=== PATIENT | male | born 2000 | race Caucasian/White ===

== ENCOUNTER 2019-02-08 15:54 | Emergency (ER) | payer SELFPAY ==
[2019-02-08 15:55] VITALS: BP 149/91; PULSE 69; RESP 18; TEMP 36.6; O2SAT 100; BMI 31.1
[2019-02-08 16:05] VITALS: BP 154/93; PULSE 73; RESP 14; O2SAT 99
[2019-02-08 16:23] VITALS: O2SAT 98
--- NOTE | 2019-02-08 16:23 | EKG12_ITS ---
Test Reason : CP Blood Pressure : / mmHG Vent. Rate : 058 BPM Atrial Rate : 058 BPM P-R Int : 158 ms QRS Dur : 090 ms QT Int : 398 ms P-R-T Axes : 053 032 034 degrees QTc Int : 390 ms Sinus bradycardia with sinus arrhythmia Otherwise normal ECG Confirmed by JONAS GIORDANO, SHASHI ([id number]), editorial specialist VIVIANE BOSTON ([id number]) on 02/11/2019 10:56:54 AM Referred By: SHAHRAM Confirmed By:SHASHI MCDANIEL MD
--- NOTE | 2019-02-08 16:27 | NURSING ---
NO OLD EKGS
--- NOTE | 2019-02-08 16:30 | RAD_ITS ---
STUDY: X-RAY CHEST REASON FOR EXAM: Male, 18 years old. Chest pain, tachycardia TECHNIQUE: 2 AP portable views COMPARISON: None. FINDINGS: EKG leads overlie the chest The lungs are clear and expanded. There is no demonstrated pleural abnormality. Normal size heart. Normal mediastinum and yo. Normal visualized pulmonary arteries. Normal visualized aortic arch and descending thoracic aorta. Normal visualized thoracic spine. Normal visualized ribs, clavicles, and shoulders. There is no demonstrated abnormality of the visualized soft tissue structures of the upper abdomen. RAD/Chest 1 View (Portable) IMPRESSION: Normal x-ray examination of the chest. Electronically Signed: Javier Lott MD at 16:42 EDT , Service support ,
--- NOTE | 2019-02-08 16:39 | ED.DCSUM_ITS ---
- ER Visit Summary Date of Service: 02/08/19 Chief Complaint: Palpitations History of Present Illness: The patient is a 18 M presenting with palpitations. Patient states he had an episode on Thursday lasting 15 to 20 minutes of his heart racing. He states he took his heart rate and it was 150. He took his mother's metoprolol. On Thursday he went to [facility] for evaluation. He was prescribed metoprolol for presumed SVT. He was asymptomatic at the time. He states he was unable to fill this prescription. He states he has had sharp constant chest pain in his left chest since Thursday. Denies other complaints. Physical Examination: Vitals are stable. Patient is afebrile. Alert no acute distress. HEENT exam is unremarkable. Neck is supple. Lungs are clear and equal bilaterally. Heart is regular rate and rhythm. Abdomen is soft nontender nondistended. Extremities are unremarkable. Skin is warm and dry. No focal neurologic deficit. Remainder of exam is unremarkable. Emergency Department Course and Treatment: Patient was given aspirin, Toradol. EKG is sinus rate of 58 with no acute ischemic changes. Chest x-ray shows no acute process. CBC, chemistries unremarkable. Troponin is negative. D-dimer negative. TSH is normal. On reevaluation, patient is resting comfortably. He declines delta troponin and would like to go home. He is advised to follow-up with Dr. Shaw technical publications manager for no doctor. He is advised he may need Holter monitoring. Advised to return to the ED for worsening complaints. Disposition: Discharge home Impression: Atypical chest pain, palpitations This note was generated with [employer] dictation software. It may contain incorrect words, spelling, and punctuation that were not noted in review of the chart prior to signing ED Disposition - Plan for ED Patient: Instructions: CHEST PAIN, Uncertain Cause, Palpitations Referrals: Eduar Shaw III, MD [STAFF PHYSICIAN] -
[2019-02-08 17:07] LABS: Absolute Lymphocyte Count 1.25 X10^3/uL (0.83-4.51); Absolute Neutrophil Count 5.6 X10^3/uL (2.0-7.7); Basophil# 0.03 X10^3/uL; Basophil% 0.4 % (0-1); Eosinophil# 0.01 X10^3/uL; Eosinophils% 0.1 % (0-5); Hematocrit 47.3 % (40-54); Hemoglobin 16.4 g/dL (13.0-16.5); Lymphocyte # 1.25 X10^3/ul (4.0); Lymphocyte % 16.4 % (19-41); Mean Corp Hgb Conc 34.7 g/dL (32-36); Mean Corpuscular Hgb 28.9 pg (27.0-32.0); Mean Corpuscular Volume 83.3 fL (80-94); Mean Platelet Vol. 9.3 fl (6.2-12.0); Monocyte# 0.73 X10^3/uL; Monocyte% 9.6 % (0-10); NRBC Flagged by Analyzer 0 % (0-5); Neutrophil # 5.61 X10^3/uL (2.7-7.7); Neutrophil % 73.4 % (47-70); Platelet Count 255 K/mm3 (150-450); RBC Distribution Width CV 11.6 % (11.6-14.6); RBC Distribution Width SD 35.2 fl (35.1-43.9); Red Blood Count 5.68 M/mm3 (4.6-6.2); White Blood Count 7.6 K/mm3 (4.4-11.0)
[2019-02-08] MEDS: Aspirin 81 MG TAB.CHEW 324 MG PO (17:11)
[2019-02-08] MEDS: Ketorolac 15 MG/ML Vial IV (17:12)
[2019-02-08 17:22] LABS: Anion Gap 7 (5-15); BUN 11 mg/dL (7-18); BUN/Creat Ratio 11.3 RATIO (10-20); Calcium,Total 9.6 mg/dL (8.5-10.1); Chloride 104 mmol/L (98-107); Creatinine, Serum 0.97 mg/dL (0.70-1.30); EST Glomerular Filtration Rate 105 mL/min (>60); Est Glom Filt Rate - Afr Amer 128 mL/min (>60); Estimated Creatinine Clearance 134.44 ml/min; Glucose 98 mg/dL (74-106); Potassium 3.9 mmol/L (3.5-5.1); Sodium Level 137 mmol/L (136-145); Thyroid Stim Hormone (TSH) 1.17 uIU/mL (0.358-3.74)
[2019-02-08 17:46] LABS: D-Dimer Quantitative (DVT/PE) < 0.27 FEU/ug/m (0.27-0.49)
[2019-02-08 18:00] VITALS: BP 115/84; PULSE 68; RESP 17; O2SAT 99
--- NOTE | 2019-02-08 18:40 | ED.DEP ---
ED Disposition - Plan for ED Patient: Instructions: CHEST PAIN, Uncertain Cause, Palpitations Referrals: Eduar Shaw III, MD [STAFF PHYSICIAN] -
== END 2019-02-08 18:51 | disposition home or self-care (01) ==
LOC: ED 16:54
PROVIDERS: Emergency Provider Emergency Medicine
DX: R07.89 Other chest pain (principal); R00.2 Palpitations; Z79.899 Other long term (current) drug therapy
CPT/HCPCS: 71045; 80048; 84443; 84484; 85025; 85379; 93005; 96374; 99284; A4216

== ENCOUNTER 2019-12-03 22:47 | Emergency (ER) | payer MEDICAID, SELFPAY ==
[2019-12-03 22:47] VITALS: BP 154/92; PULSE 71; RESP 16; TEMP 36.4; O2SAT 99; BMI 32.8
--- NOTE | 2019-12-03 23:02 | ED.DCSUM_ITS ---
- ER Visit Summary Date of Service: 12/03/19 Chief Complaint: Dizziness History of Present Illness: The patient is a 19 M who presents with dizziness that has been intermittent over the past 5 months. Patient states it is getting more frequent. Patient states he feels lightheaded. Patient states he feels like he might pass out. Patient states this is worse with exertion and activity. Patient admits to a headache. Patient states his headache feels like a sinus infection. Patient states that he has been on antibiotics for possible sinus infection which has not improved his headache. Patient states that his headache feels like a pressure over the top of his head. Patient denies any fevers or chills. Patient denies any chest pain or shortness of breath. Patient states he does feel like his heart is racing at times. Physical Examination: Vital signs are stable. Patient is afebrile. Patient is in no acute distress. Pupils are equal, round, and reactive to light bilaterally. Extraocular muscles are intact. There is no nystagmus noted. Oral mucosa is pink and moist. Neck is supple. Trachea is midline. There is no JVD noted. Heart was regular rate and rhythm. Lungs are clear and equal bilaterally. Abdomen is soft. Bowel sounds are normal. There is no tenderness. There is no rebound or guarding noted. Skin is warm dry. Cranial nerves II through XII are intact. There are no focal motor or sensory deficits noted. Extremities are intact. There is no calf tenderness or edema. Test Results: CBC and comprehensive metabolic profile were within normal limits. CT scan of the brain was obtained. There is no acute intracranial abnormality. This was interpreted by the radiologist and reviewed by myself. Orthostatic vital signs were obtained and were within normal limits. Emergency Department Course and Treatment: Patient was given Reglan and Benadryl for his headache. Patient is feeling better on reevaluation. Patient was instructed to rest in a dark quiet room. Patient was instructed to follow-up with his primary care physician in 5 to 7 days. Patient understood and was agreeable with the plan. All questions were answered. Disposition: Discharge home Impression: Dizziness This note was generated with [employer] dictation software. It may contain incorrect words, spelling, and punctuation that were not noted in review of the chart prior to signing ED Disposition - Plan for ED Patient: Disposition: Home or Assisted Living Diagnosis: Dizziness Instructions: ED Dizziness [facility] Referrals: Robin Bond MD [STAFF PHYSICIAN] - 5-7 Days
[2019-12-03 23:30] VITALS: BP 138/70; PULSE 62
[2019-12-03 23:35] VITALS: BP 134/81; PULSE 54
[2019-12-03 23:40] VITALS: BP 141/89; PULSE 68
[2019-12-03] MEDS: DiphenhydrAMINE 50 MG/ML Syringe 25 MG IV (23:50)
[2019-12-03] MEDS: Metoclopramide 10 MG/2 ML Vial IV (23:51)
[2019-12-04 00:01] LABS: Absolute Lymphocyte Count 1.96 X10^3/uL (0.83-4.51); Absolute Neutrophil Count 3.8 X10^3/uL (2.0-7.7); Basophil# 0.03 X10^3/uL; Basophil% 0.5 % (0-1); Eosinophil# 0.12 X10^3/uL; Eosinophils% 1.8 % (0-5); Hematocrit 45.7 % (40-54); Hemoglobin 15.1 g/dL (13.0-16.5); Lymphocyte # 1.96 X10^3/ul (4.0); Lymphocyte % 29.9 % (19-41); Mean Corpuscular Hgb 28.9 pg (27.0-32.0); Mean Corpuscular Volume 87.5 fL (80-94); Mean Platelet Vol. 9.1 fl (6.2-12.0); Monocyte# 0.61 X10^3/uL; Monocyte% 9.3 % (0-10); NRBC Flagged by Analyzer 0 % (0-5); Neutrophil # 3.82 X10^3/uL (2.7-7.7); Neutrophil % 58.3 % (47-70); Platelet Count 228 K/mm3 (150-450); RBC Distribution Width CV 11.5 % (11.6-14.6); RBC Distribution Width SD 37.1 fl (35.1-43.9); Red Blood Count 5.22 M/mm3 (4.6-6.2); White Blood Count 6.6 K/mm3 (4.4-11.0)
[2019-12-04 00:22] LABS: ALB/GLOB Ratio 1.3 RATIO (0.9-2.4); AST(SGOT) 18 U/L (15-37); Alanine Aminotransfer ALT/SGPT 34 U/L (16-61); Albumin, Serum 4.3 g/dL (3.2-5.0); Alkaline Phosphatase 86 U/L (45-117); Anion Gap 6 (5-15); BUN 17 mg/dL (7-18); Calcium,Total 8.6 mg/dL (8.5-10.1); Chloride 106 mmol/L (98-107); Creatinine, Serum 1.06 mg/dL (0.70-1.30); EST Glomerular Filtration Rate 94 mL/min (>60); Est Glom Filt Rate - Afr Amer 114 mL/min (>60); Estimated Creatinine Clearance 122.01 ml/min; Globulin 3.2 g/dL (2.2-4.2); Glucose 95 mg/dL (74-106); Potassium 3.8 mmol/L (3.5-5.1); Protein, Total 7.5 g/dL (6.4-8.2); Sodium Level 140 mmol/L (136-145)
[2019-12-04 01:42] VITALS: BP 101/62; PULSE 57; RESP 18; O2SAT 99
--- NOTE | 2019-12-04 23:00 | CT_ITS ---
HISTORY: DIZZINESS AND HEAD PRESSURE SINCE JUNE,HAD ANTIBIOTICS FOR ? SINUS INFECTION ADDITIONAL HISTORY: None provided. COMPARISON: None EXAMINATION/TECHNIQUE: CT Head or Brain W/O Contrast Injection. Axial, coronal and sagittal images. Number of images including paperwork: 252. A radiation dose optimization technique was used for this scan. FINDINGS: BRAIN: No acute hemorrhage or mass. No definite acute infarct; MRI more sensitive. VENTRICULAR SYSTEM: No hydrocephalus. PARANASAL SINUSES AND MASTOIDS: No air-fluid level in the imaged extent. ORBITS: Unremarkable imaged extent. SKELETON AND SOFT TISSUES: Calvarium intact. ASPECTS score: Not applicable. CT/Brain/Head without Contrast IMPRESSION: No acute intracranial abnormality. Individualized dose optimization techniques were used for this CT. at 0057 Reported and signed by: Karissa Lowery MD Electronically Signed: Karissa Lowery MD at 0:57 EDT Tel , Service support ,
== END 2019-12-04 01:51 | disposition home or self-care (01) ==
PROVIDERS: Emergency Provider Emergency Medicine; PCP Family Medicine
DX: R42 Dizziness and giddiness (principal); R51 Headache
CPT/HCPCS: 70450; 80053; 85025; 96374; 96375; 99285; A4216